=== PATIENT | male | born 1940 | race Two or more races ===

== ENCOUNTER → 2021-03-19 18:15 | Outpatient (CLI) | payer MEDICARE ==
[2021-03-19 18:43] LABS: BASOPHILS 1.3 % (0-2); EOSINOPHILS 5.8 % (0-7); HEMATOCRIT 26.2 % (42.0-54.0); HEMOGLOBIN 8.7 g/dL (13.5-17.5); MCH 32.3 pg (26.0-34.0); MCHC 33.2 g/dL (31.0-37.0); MCV 97.4 fL (80.0-100.0); MEAN PLATELET VOLUME 7.9 fL (7.4-10.4); MONOCYTES 5.4 % (2-11); NEUTROPHILS 75.5 % (40-80); PLATELET COUNT 232 10x3/uL (130-400); RBC 2.69 10x6/uL (4.20-6.10); RDW 14.7 % (11.5-14.5)
[2021-03-19 19:18] LABS: ANION GAP 16.7 mmol/L (8-16); BILIRUBIN - TOTAL 0.6 mg/dL (0.2-1.3); CALCIUM 7.8 mg/dL (8.5-10.1); CARBON DIOXIDE 21.9 mmol/L (21.0-32.0); CREATININE - SERUM 4.2 mg/dL (0.6-1.3); POTASSIUM - SERUM 4.6 mmol/L (3.5-5.1); PROTEIN - SERUM 6.2 g/dL (6.4-8.2)
[2021-03-19 19:30] LABS: LDL-HDL RATIO 1.6 ratio (1.5-3.5)
== END | disposition home or self-care (01) ==
LOC: D.LABREF 18:15
PROVIDERS: ATTEND Family Medicine
DX: E11.69 Type 2 diabetes mellitus with other specified complication (principal); N17.9 Acute kidney failure, unspecified; I10 Essential (primary) hypertension; E78.2 Mixed hyperlipidemia